=== PATIENT | male | born 1975 | race Caucasian/White ===

== ENCOUNTER 2021-04-09 05:31 | Inpatient (IN) ==
[2021-04-09] MEDS ORDERED: 0.9 % Sodium Chloride 1,000 ML IVC ONE (06:16)
[2021-04-09] MEDS ORDERED: Ondansetron 4 MG/2 ML VIAL IVP ONE (06:16)
[2021-04-09 06:33] LABS: Basophils % 0.2 %; Hemoglobin 15.2 g/dL (12.9-16.9); Red Cell Distribution Width 14.1 % (11.5-14.5)
[2021-04-09 06:34] LABS: Basophils # 0.1 K/mcL (0.0-0.2); Hematocrit 47.4 % (37.5-50.1); Immature Granulocytes % 1.3 % (0-4); Lymphocytes # 0.3 K/mcL (0.6-4.6); Lymphocytes % 0.9 %; Mean Corpuscular HGB Conc 32.1 g/dL (31.6-35.5); Mean Corpuscular Hemoglobin 29.5 pg (28.0-33.3); Mean Corpuscular Volume 91.9 fL (83.0-100.0); Mean Platelet Volume 9.4 fL (9.4-12.4); Monocytes # 1.8 K/mcL (0.0-1.3); Monocytes % 5.5 %; Platelet Count 318 K/mcL (140-400); Red Blood Count 5.16 M/mcL (4.19-5.50); Segmented Neutrophils % 92.1 %
[2021-04-09 06:40] LABS: Neutrophils # 29.5 K/mcL (1.6-8.9)
[2021-04-09] MEDS ORDERED: cefTRIAXone 1,000 MG in Water for inj. (sterile) 10 ML IVP ONE (06:42)
[2021-04-09] MEDS ORDERED: 0.9 % Sodium Chloride 1,000 ML IV ONE (06:43)
[2021-04-09 06:47] LABS: Prothrombin Time 10.6 Seconds (9.4-12.1)
[2021-04-09] MEDS ORDERED: *HR* Etomidate 20 MG/10 ML AMPUL IVP ONE (06:49)
[2021-04-09 06:50] LABS: Activated Partial Thrombo Time 29.4 Seconds (26.0-36.0)
[2021-04-09 06:53] LABS: Hypersegmented Neutrophils Present (Not Present); Platelet Estimate Normal (Normal)
[2021-04-09 07:12] LABS: Albumin 4.4 g/dL (3.5-5.7); Bilirubin,Total 0.3 mg/dL (0.3-1.0); Calcium 7.8 mg/dL (8.6-10.3); Globulin 2.2 g/dL (2.4-3.5); Potassium 4.5 mEq/L (3.5-5.1); Total Protein 6.6 g/dL (6.4-8.9)
[2021-04-09 08:00] VITALS: O2SAT 100
[2021-04-09] MEDS ORDERED: diazePAM 10 MG/2 ML SYRINGE IVP ONE (08:31)
[2021-04-09] MEDS ORDERED: Pantoprazole 40 MG VIAL IVP ONE ×2 (09:11→14:59)
[2021-04-09 10:12] LABS: Acetaminophen < 10 mcg/mL (10-20); Creatine Kinase 666 Units/L (30-223)
[2021-04-09 10:15] LABS: Hepatitis B Surface Antigen Nonreactive (Nonreactive)
[2021-04-09 10:19] LABS: Troponin I 1.02 ng/mL (< 0.04)
[2021-04-09] MEDS ORDERED: 0.9 % Sodium Chloride 500 ML IVC ONE (10:23)
[2021-04-09 10:43] LABS: Hepatitis C Virus Antibody Nonreactive (Nonreactive)
[2021-04-09 10:44] LABS: Hepatitis B Core IgM Nonreactive (Nonreactive)
[2021-04-09 10:46] LABS: Hepatitis A Antibody IgM Nonreactive (Nonreactive)
[2021-04-09 11:33] LABS: Thyroid Stimulating Hormone 0.277 mcIU/mL (0.340-5.600)
[2021-04-09] MEDS ORDERED: Naloxone 0.4 MG/ML INJ IVP PRN (12:39)
[2021-04-09] MEDS ORDERED: 0.9 % Sodium Chloride 1,000 ML IVC SCH (12:45)
[2021-04-09 13:20] VITALS: PULSE 90
[2021-04-09 16:20] VITALS: BP 114/74; TEMP 98.3
[2021-04-09 17:13] LABS: Hematocrit 44.2 % (37.5-50.1); Mean Corpuscular HGB Conc 30.8 g/dL (31.6-35.5); Mean Corpuscular Hemoglobin 28.3 pg (28.0-33.3); Mean Corpuscular Volume 92.1 fL (83.0-100.0); Mean Platelet Volume 9.6 fL (9.4-12.4); Platelet Count 259 K/mcL (140-400); Red Cell Distribution Width 14.4 % (11.5-14.5); White Blood Count 22.9 K/mcL (4.3-11.1)
[2021-04-09 17:14] LABS: Hemoglobin 13.6 g/dL (12.9-16.9)
== END 2021-04-09 18:35 | disposition left against medical advice (07) | DRG 378 ==
LOC: 2ANU 05:31 → EMEROOARM 05:31 → 2ANU 14:14
PROVIDERS: ADMIT Internal Medicine; ATTEND Internal Medicine